=== PATIENT | male | born 1975 | race Caucasian/White ===

== ENCOUNTER 2020-01-23 12:03 | Emergency (ER) | payer BC ==
[~2020-01-23] VITALS: Ht 188 cm; Wt 119.3 kg
[~2020-01-23 12:03] MED LIST: AMITRIPTYLINE; DEPO-TESTO100 MG/1 M SQ; DOXAZOSIN; VICODIN 5-3001 EACH PO
[2020-01-23] MEDS ORDERED: FLEXERIL PO (12:22)
[2020-01-23] MEDS ORDERED: MEDROLDOSEPACK PO (12:35)
[2020-01-23] MEDS ORDERED: NORCO 5-325 TA1 EAC2 PO (12:35)
[2020-01-23 12:52] VITALS: BP 161/85
== END 2020-01-23 12:52 | disposition home or self-care (01) ==
LOC: M.ERS 12:03
DX: M54.5 Low back pain (principal); Z88.1 Allergy status to other antibiotic agents

== ENCOUNTER 2020-02-18 09:47 | Emergency (ER) | payer BC ==
[~2020-02-18] VITALS: Ht 188 cm; Wt 99.8 kg
[~2020-02-18 09:47] MED LIST changes: +FLEXERIL PO; +MEDROLDOSEPACK PO; +NORCO 5-325 TA1 EAC2 PO
[2020-02-18] MEDS ORDERED: APPLE CIDER VI500 MG PO (10:06)
[2020-02-18] MEDS ORDERED: OSTEO BI-FLEX1 EAC1 PO (10:06)
[2020-02-18] MEDS ORDERED: MULTI VITAMIN1 EACH PO (10:07)
[2020-02-18] MEDS ORDERED: TURMERIC500 M2 PO (10:07)
[2020-02-18] MEDS ORDERED: TYLENOL325 M1 PO (10:10)
[2020-02-18] MEDS ORDERED: PROVIL200 MG PO (10:10)
[2020-02-18] MEDS ORDERED: CARDURA2 MG PO (10:11)
[2020-02-18] MEDS ORDERED: L-THEANINE25 GM PO (10:11)
[2020-02-18] MEDS ORDERED: CAPZASIN PO (10:12)
[2020-02-18] MEDS ORDERED: ULTRAM 50MG TAB50 MG PO (10:12)
[2020-02-18] MEDS ORDERED: VOLTAREN GEL 1100 G1 TOP (10:12)
[2020-02-18] MEDS ORDERED: NORCO 5-325 TA1 EAC2 PO (11:00)
[2020-02-18] MEDS ORDERED: LIDODERM1 EACH TOP (11:00)
[2020-02-18 11:14] VITALS: BP 200/96
== END 2020-02-18 11:15 | disposition home or self-care (01) ==
LOC: M.ERS 09:47
DX: M54.5 Low back pain (principal); Z88.1 Allergy status to other antibiotic agents